=== PATIENT | male | born 1935 | race Two or more races ===

== ENCOUNTER 2018-05-23 16:58 | Inpatient (IN) | payer MEDICARE, OTHER ==
[~2018-05-23] VITALS: Ht 188 cm; Wt 68.0 kg
--- NOTE | 2018-05-23 17:45 | NUR ---
Dr. Moore at bedside for MSE.
[2018-05-23] MEDS ORDERED: BLOO-140 IN (17:48)
[2018-05-23] MEDS ORDERED: EMPA25TA PO (17:48)
[2018-05-23] MEDS ORDERED: FERR325T6 PO (17:48)
[2018-05-23] MEDS ORDERED: ASCO500T10 PO (17:48)
[2018-05-23] MEDS ORDERED: ATOR40TA PO (17:48)
[2018-05-23] MEDS ORDERED: ESCI10TA PO (17:48)
[2018-05-23] MEDS ORDERED: DOCU100C36 PO (17:48)
[2018-05-23] MEDS ORDERED: TAMS-3 PO (17:48)
[2018-05-23] MEDS ORDERED: ACET325T53 PO (17:48)
[2018-05-23] MEDS ORDERED: CEFE1PIG3 IV (17:48)
[2018-05-23] MEDS ORDERED: AMIO100T4 PO (17:48)
[2018-05-23] MEDS ORDERED: CLOP75TA15 PO (17:49)
[2018-05-23] MEDS ORDERED: RIVA15TA2 PO (17:49)
[2018-05-23] MEDS ORDERED: AMIN30LI24 PO (17:49)
[2018-05-23] MEDS ORDERED: OLAN5TAB3 PO (17:49)
[2018-05-23] MEDS ORDERED: MULT1TAB73 PO (17:49)
[2018-05-23] MEDS ORDERED: METO50TA7 PO (17:49)
[2018-05-23] MEDS ORDERED: FINA5TAB3 PO (17:49)
[2018-05-23] MEDS ORDERED: MORPHINE SULFATE 2 MG/1 ML DISP.SYRIN IV ONE (18:00)
[2018-05-23] MEDS ORDERED: ONDANSETRON 4 MG/2 ML VIAL IV ONE (18:00)
[2018-05-23] MEDS ORDERED: MORPHINE SULFATE 4 MG/1 ML DISP.SYRIN ONE (18:04)
[2018-05-23] MEDS ORDERED: ONDANSETRON 4 MG/2 ML VIAL ONE (18:04)
--- NOTE | 2018-05-23 18:10 | NUR ---
Xray at bedside.
[2018-05-23 18:13] LABS: BASOPHILS % (AUTO) 0.5 % (0.0-2.0); EOSINOPHILS # (AUTO) 0.1 K/uL (0.0-0.7); EOSINOPHILS % (AUTO) 1.3 % (0.0-7.0); HEMATOCRIT 22.6 % (36.7-47.1); HEMOGLOBIN 7.5 g/dL (12.5-16.3); LYMPHOCYTES # (AUTO) 2.3 K/uL (20.0-40.0); LYMPHOCYTES % (AUTO) 39.9 % (20.5-51.5); MEAN CORPUSCULAR HGB CONC 33 g/dL (32.5-36.3); MEAN CORPUSCULAR VOLUME 75.1 fL (73.0-96.2); MONOCYTES # (AUTO) 0.4 K/uL (2.0-10.0); MONOCYTES % (AUTO) 6.8 % (0.0-11.0); NEUTROPHILS # (AUTO) 2.9 K/uL (1.8-8.9); NEUTROPHILS % (AUTO) 51.5 % (38.5-71.5); PLATELET COUNT (AUTO) 261 K/uL (152-348); RED BLOOD CELL COUNT(AUTO) 3.01 MIL/uL (4.06-5.63); WHITE BLOOD COUNT (AUTO) 5.7 K/uL (3.6-10.2)
[2018-05-23 18:24] LABS: CARBON DIOXIDE 32 mmol/L (21-32); CHLORIDE 101 mmol/L (98-107); CREATININE 1.2 mg/dL (0.6-1.3); GLUCOSE 102 mg/dL (74-106); POTASSIUM 3.5 mmol/L (3.5-5.1); UREA NITROGEN, BLOOD 14 mg/dL (7-18)
[2018-05-23 18:30] LABS: ALANINE AMINOTRANSFERASE 11 U/L (16-63); ALKALINE PHOSPHATASE 100 U/L (50-136); ASPARTATE AMINOTRANSFERASE 20 U/L (15-37); BILIRUBIN,DIRECT 0.1 mg/dL (0.0-0.2); BILIRUBIN,TOTAL 0.3 mg/dL (0.2-1.0); LIPASE 131 U/L (73-393); TOTAL PROTEIN, SERUM 6.8 g/dL (6.4-8.2)
[2018-05-23 19:25] VITALS: BP 94/50
[2018-05-23] MEDS ORDERED: AMINO ACIDS PO SCH (19:45)
[2018-05-23] MEDS ORDERED: Medication Not On Formulary EA (Empagliflozin (Jardiance) 25 MG) PO SCH (19:45)
[2018-05-23] MEDS ORDERED: [UNRECOGNIZED DRUG - OTHER] PO SCH (19:45)
[2018-05-23] MEDS ORDERED: Medication Not On Formulary EA (Multivitamins (Multivitamin) 1 EACH) PO SCH (19:45)
[2018-05-23] MEDS ORDERED: PROTEIN HYDROLYS PO SCH (19:45)
[2018-05-23] MEDS ORDERED: Medication Not On Formulary EA (Ferrous Sulfate 325 MG) PO SCH (19:45)
[2018-05-23] MEDS ORDERED: ACETAMINOPHEN 325 MG TABLET PO PRN ×2 (19:45→21:15)
--- NOTE | 2018-05-23 19:54 | NUR ---
Report given to Sheeba VALLE Tele.
--- NOTE | 2018-05-23 20:15 | NUR ---
Received patient to Tele floor. A&Ox3. Belongings list completed, oriented patient to unit and use of call light. Bed alarm on, call light within reach.
[2018-05-23] MEDS: TAMSULOSIN HCL 0.4 MG CAP.SR.24H PO SCH (21:00)
[2018-05-23] MEDS: METOPROLOL SUCCINATE XL 50 MG TAB.SR.24H PO SCH (21:00)
[2018-05-23] MEDS ORDERED: ONDANSETRON 4 MG/2 ML VIAL IV PRN (21:15)
[2018-05-23] MEDS ORDERED: Z GUARD REMEDY PASTE 57 GM TUBE TOP PRN (21:15)
[2018-05-23] MEDS ORDERED: MAGNESIUM HYDROXIDE 30 ML LIQUID UDC PO PRN (21:15)
[2018-05-23] MEDS: ATORVASTATIN 40 MG TABLET PO SCH (21:49)
[2018-05-23] MEDS: OLANZAPINE 5 MG TABLET PO SCH (21:49)
[2018-05-23] MEDS: IV NS 1000 ML 1,000 ML IV PRN (21:50)
[2018-05-23] MEDS: diphenhydrAMINE 25 MG CAP PO PRN (22:41)
[2018-05-23 23:43] VITALS: BP 98/55
[2018-05-24 03:37] VITALS: BP 96/39
[2018-05-24] MEDS: diphenhydrAMINE 25 MG CAP PO PRN (05:13)
[2018-05-24 06:48] LABS: BASOPHILS % (AUTO) 0.3 % (0.0-2.0); EOSINOPHILS # (AUTO) 0.2 K/uL (0.0-0.7); EOSINOPHILS % (AUTO) 3.5 % (0.0-7.0); HEMATOCRIT 22.2 % (36.7-47.1); LYMPHOCYTES # (AUTO) 1.7 K/uL (20.0-40.0); LYMPHOCYTES % (AUTO) 38.4 % (20.5-51.5); MEAN CORPUSCULAR HEMOGLOBIN 25.1 uug (23.8-33.4); MEAN CORPUSCULAR HGB CONC 33 g/dL (32.5-36.3); MEAN CORPUSCULAR VOLUME 75.9 fL (73.0-96.2); MONOCYTES # (AUTO) 0.3 K/uL (2.0-10.0); MONOCYTES % (AUTO) 7.2 % (0.0-11.0); NEUTROPHILS # (AUTO) 2.3 K/uL (1.8-8.9); NEUTROPHILS % (AUTO) 50.6 % (38.5-71.5); PLATELET COUNT (AUTO) 239 K/uL (152-348); RED BLOOD CELL COUNT(AUTO) 2.93 MIL/uL (4.06-5.63); WHITE BLOOD COUNT (AUTO) 4.5 K/uL (3.6-10.2)
[2018-05-24 07:05] LABS: ALANINE AMINOTRANSFERASE 8 U/L (16-63); ALKALINE PHOSPHATASE 90 U/L (50-136); ASPARTATE AMINOTRANSFERASE 17 U/L (15-37); BILIRUBIN,TOTAL 0.3 mg/dL (0.2-1.0); CARBON DIOXIDE 31 mmol/L (21-32); CHLORIDE 106 mmol/L (98-107); CREATININE 1.1 mg/dL (0.6-1.3); GLUCOSE 86 mg/dL (74-106); MAGNESIUM 2.1 mg/dL (1.8-2.4); PHOSPHOROUS 2.8 mg/dL (2.5-4.9); POTASSIUM 3.2 mmol/L (3.5-5.1); TOTAL PROTEIN, SERUM 6.4 g/dL (6.4-8.2); UREA NITROGEN, BLOOD 14 mg/dL (7-18)
[2018-05-24 07:08] LABS: HEMOGLOBIN 7.3 g/dL (12.5-16.3)
[2018-05-24] MEDS: PROTEIN SUPPLEMENT (PROSTAT) 30 ML LIQUID PO SCH ×2 (08:00→16:54)
[2018-05-24] MEDS ORDERED: INSULIN REGULAR, HUMAN 300 UNITS/3 ML VIAL SQ PRN (08:30)
[2018-05-24] MEDS ORDERED: CEFEPIME HCL 2 G in IV DEXTROSE 5% 100 ML IV SCH (08:30)
[2018-05-24] MEDS ORDERED: DEXTROSE 50% 50 ML DISP.SYRIN IV PRN (08:30)
[2018-05-24] MEDS ORDERED: FERROUS SULFATE 325 MG TABEC PO SCH (09:00)
[2018-05-24] MEDS: BLOOD SUGAR DIAGNOSTIC 1 EACH STRIP VI SCH ×4 (09:00→20:37)
[2018-05-24] MEDS ORDERED: FINASTERIDE 5 MG TABLET PO SCH (09:00)
[2018-05-24] MEDS: METOPROLOL SUCCINATE XL 50 MG TAB.SR.24H PO SCH (09:00)
[2018-05-24] MEDS: DOCUSATE SODIUM 100 MG CAPSULE PO SCH (09:02)
[2018-05-24] MEDS: FINASTERIDE 5 MG TABLET PO SCH (09:02)
[2018-05-24] MEDS: ESCITALOPRAM OXALATE 10 MG TABLET PO SCH (09:02)
[2018-05-24] MEDS: TAMSULOSIN HCL 0.4 MG CAP.SR.24H PO SCH (09:02)
[2018-05-24] MEDS: ASCORBIC ACID 500 MG TABLET PO SCH (09:02)
[2018-05-24] MEDS: MIRALAX 17 GM POWD.PACK PO SCH (09:02)
[2018-05-24] MEDS: MULTIVITAMINS,THERAPEUTIC TABLET PO SCH (09:03)
[2018-05-24] MEDS: AMIODARONE HCL 200 MG TABLET PO SCH (09:07)
[2018-05-24] MEDS: CEFEPIME HCL 2 G in IV DEXTROSE 5% 100 ML IV SCH ×2 (09:14→20:25)
--- NOTE | 2018-05-24 09:49 | NUR ---
Pt BP 98/44, heart rate 72, metoprolol held.
[2018-05-24 11:18] VITALS: BP 93/47
[2018-05-24] MEDS: IV NS 1000 ML 1,000 ML IV PRN (11:44)
[2018-05-24] MEDS ORDERED: POTASSIUM CHLORIDE 20 MEQ POWDER PACKET PO ONE (12:15)
[2018-05-24] MEDS: SOD FERRIC GLUC COMPLX/SUCROSE 125 MG in IV NORMAL SALINE 100 ML IV SCH (13:51)
--- NOTE | 2018-05-24 14:06 | NUR ---
WOUND CARE CONSULT: PT SEEN BY SURGICAL TEAM. DEFER TO SURGICAL TEAM FOR WOUND TREATMENT PLAN. ALL SKIN PROTECTION AND PRESSURE ULCER PREVENTION MEASURES IN PLACE AND DISCUSSED WITH NURSING STAFF. FIRST STEP LOW AIRLOSS MATTRESS ORDERED.
[2018-05-24 15:20] VITALS: BP 83/23
--- NOTE | 2018-05-24 15:30 | NUR ---
BP 83/23, DOCTOR PAGED WAITING FOR CALL BACK. PT SHOWS NO SIGNS OF ACUTE DISTRESS. CONTINUE TO MONITOR.
--- NOTE | 2018-05-24 15:40 | NUR ---
MD NOTIFIED OF BP, IV NS BOLUS ORDERED, CONTINUE TO MONITOR PT.
[2018-05-24] MEDS ORDERED: IV NS 1000 ML 1,000 ML IV ONE (15:45)
--- NOTE | 2018-05-24 16:20 | NUR ---
BP 103/50. MD NOTIFIED. PT OBSERVED EATING DINNER. NO SIGNS OF ACUTE DISTRESS. CONTINUE TO MONITOR PT.
[2018-05-24] MEDS: INSULIN REGULAR, HUMAN 300 UNIT/3 ML VIAL SQ PRN ×2 (16:51→21:28)
--- NOTE | 2018-05-24 18:30 | NUR ---
CALLED DAUGHTER MAYE PEREZ. RECEIVED CONSENT OVER THE PHONE FOR SACRAL AND LEFT HEEL WOUND DEBRIDEMENT. CALLED KWAN BRIDGETTE TO RECEIVE ORDERS FOR DAKINS SOLUTION, MESSAGE LEFT ON PHONE. WOUND CARE PROVIDED. PT REFUSED 11:30 INSULIN FOR A BLOOD SUGAR 215. IV NS BOLUS GIVEN TODAY. NOT IN ACUTE DISTRESS AT THIS TIME. CONTINUE TO MONITOR PT.
--- NOTE | 2018-05-24 19:10 | NUR ---
RECEIVED PT ASLEEP ON BED, NO SIGNS OF RESPIRATORY DISTRESS NOTED. PICC LINE ON BARRY, PATENT AND INTACT. ON FC, DRAINING WELL VIA GRAVITY. SAFETY MEASURES INITIATED, CALL NAM WITHIN REACH.
[2018-05-24 19:25] VITALS: BP 98/46
[2018-05-24] MEDS: ATORVASTATIN 40 MG TABLET PO SCH (20:25)
[2018-05-24] MEDS: OLANZAPINE 5 MG TABLET PO SCH (20:25)
[2018-05-24] MEDS: SODIUM HYPOCHLORITE 0.25% 480 ML BOTTLE TOP SCH (21:31)
[2018-05-24] MEDS: TEMAZEPAM 7.5 MG CAPSULE PO PRN (23:38)
[2018-05-25] MEDS: HYDROCODONE/APAP 5-325MG TABLET PO PRN (00:22)
[2018-05-25 03:33] VITALS: BP 91/46
[2018-05-25] MEDS: IV NS 1000 ML 1,000 ML IV PRN ×2 (03:49→21:04)
--- NOTE | 2018-05-25 06:37 | NUR ---
PT RESTING COMFORTABLY ON BED, AAOX2, NO SIGNS OF ACUTE DISTRESS AT THIS TIME. PICC LINE ON BARRY, PATENT AND INTACT. SKIN CARE PROVIDED. FC, DRAINING WELL VIA GRAVITY WITH CLEAR YELLOW OUTPUT. ALL NEEDS ATTENDED AND MET. SAFE ENVIRONMENT MAINTAINED AT ALL TIMES, CALL NAM WITHIN REACH.
[2018-05-25] MEDS: BLOOD SUGAR DIAGNOSTIC 1 EACH STRIP VI SCH ×4 (06:58→21:07)
[2018-05-25] MEDS ORDERED: SODIUM HYPOCHLORITE 0.25% 480 ML BOTTLE TOP SCH (09:00)
[2018-05-25] MEDS: PROTEIN SUPPLEMENT (PROSTAT) 30 ML LIQUID PO SCH ×2 (09:00→16:47)
[2018-05-25] MEDS: METOPROLOL SUCCINATE XL 50 MG TAB.SR.24H PO SCH (09:00)
[2018-05-25] MEDS: DOCUSATE SODIUM 100 MG CAPSULE PO SCH (09:16)
[2018-05-25] MEDS: ESCITALOPRAM OXALATE 10 MG TABLET PO SCH (09:16)
[2018-05-25] MEDS: MIRALAX 17 GM POWD.PACK PO SCH (09:16)
[2018-05-25] MEDS: ASCORBIC ACID 500 MG TABLET PO SCH (09:16)
[2018-05-25] MEDS: TAMSULOSIN HCL 0.4 MG CAP.SR.24H PO SCH (09:16)
[2018-05-25] MEDS: MULTIVITAMINS,THERAPEUTIC TABLET PO SCH (09:16)
[2018-05-25] MEDS: FINASTERIDE 5 MG TABLET PO SCH (09:16)
[2018-05-25] MEDS: SODIUM HYPOCHLORITE 0.25% 480 ML BOTTLE TOP SCH ×2 (09:20→21:04)
[2018-05-25] MEDS: CEFEPIME HCL 2 G in IV DEXTROSE 5% 100 ML IV SCH ×2 (09:21→21:03)
[2018-05-25] MEDS ORDERED: POTASSIUM CHLORIDE 20 MEQ TAB.PRT.SR PO ONE (11:00)
[2018-05-25 11:22] VITALS: BP 98/42
[2018-05-25] MEDS: MUPIROCIN 2% OINT 22 GM TUBE NS SCH ×2 (12:08→21:07)
[2018-05-25] MEDS: SOD FERRIC GLUC COMPLX/SUCROSE 125 MG in IV NORMAL SALINE 100 ML IV SCH (13:33)
[2018-05-25] MEDS ORDERED: BISACODYL 10 MG SUPP.RECT RC ONE (15:00)
[2018-05-25 15:10] VITALS: BP 129/57
--- NOTE | 2018-05-25 16:00 | NUR ---
WOUND TREATMENT DONE ORDERED. PATIENT TOLERATED PROCEDURE WELL. NO S/S OF INFECTION. VS STABLE, AFEBRILE.
[2018-05-25 17:26] LABS: CARBON DIOXIDE 31 mmol/L (21-32); CHLORIDE 107 mmol/L (98-107); CREATININE 1.3 mg/dL (0.6-1.3); GLUCOSE 114 mg/dL (74-106); UREA NITROGEN, BLOOD 15 mg/dL (7-18)
[2018-05-25 19:23] VITALS: BP 99/42
--- NOTE | 2018-05-25 19:30 | NUR ---
RECEIVED SHIFT REPORT FROM TORI CARMONA. PT RESTING IN BED AT THIS TIME. DENIES PAIN, C/P, SOB, N/V. PT HAS A GRANGER CATH IN PLACE, INTACT AND PATENT. GRANGER CATH DRAINING WELL, URINE YELLOW AND CLEAR IN APPEARANCE. PT HAS BILATERAL NEPHROSTOMY IN PLACE, NO DRAINAGE. BED IN LOW AND LOCKED POSITION WITH BILATERAL UPPER SIDERAILS UP. CALL LIGHT WITHIN REACH. WILL CONTINUE TO MONITOR.
[2018-05-25] MEDS: OLANZAPINE 5 MG TABLET PO SCH (21:04)
[2018-05-25] MEDS: ATORVASTATIN 40 MG TABLET PO SCH (21:04)
[2018-05-25 22:11] LABS: *OCCULT BLOOD STOOL NEGATIVE (NEGATIVE)
[2018-05-25] MEDS: diphenhydrAMINE 25 MG CAP PO PRN (23:08)
[2018-05-26] MEDS: HYDROCODONE/APAP 5-325MG TABLET PO PRN ×2 (01:35→20:10)
[2018-05-26] MEDS: TEMAZEPAM 7.5 MG CAPSULE PO PRN (01:38)
[2018-05-26 03:34] VITALS: BP 105/49
[2018-05-26] MEDS: BLOOD SUGAR DIAGNOSTIC 1 EACH STRIP VI SCH ×4 (06:34→21:10)
--- NOTE | 2018-05-26 07:20 | NUR ---
Received patient in bed,awake, alert and oriented x3, in no acute distress. denies chest pain or SOB. BARRY PICC line intact, IV fluids infusing at 75cc/hr, tolerating well. F/C patent and draining yellow urine. No hematuria or sediments noted. Will continue to monitor
[2018-05-26] MEDS: PROTEIN SUPPLEMENT (PROSTAT) 30 ML LIQUID PO SCH ×2 (08:00→16:50)
[2018-05-26] MEDS: CEFEPIME HCL 2 G in IV DEXTROSE 5% 100 ML IV SCH ×2 (08:47→20:10)
[2018-05-26] MEDS: AMIODARONE HCL 200 MG TABLET PO SCH (08:48)
[2018-05-26] MEDS: DOCUSATE SODIUM 100 MG CAPSULE PO SCH (08:48)
[2018-05-26] MEDS: METOPROLOL SUCCINATE XL 50 MG TAB.SR.24H PO SCH (08:48)
[2018-05-26] MEDS: MULTIVITAMINS,THERAPEUTIC TABLET PO SCH (08:48)
[2018-05-26] MEDS: ESCITALOPRAM OXALATE 10 MG TABLET PO SCH (08:48)
[2018-05-26] MEDS: TAMSULOSIN HCL 0.4 MG CAP.SR.24H PO SCH (08:48)
[2018-05-26] MEDS: FINASTERIDE 5 MG TABLET PO SCH (08:48)
[2018-05-26] MEDS: ASCORBIC ACID 500 MG TABLET PO SCH (08:49)
[2018-05-26] MEDS: MUPIROCIN 2% OINT 22 GM TUBE NS SCH ×2 (08:49→21:10)
[2018-05-26] MEDS: SODIUM HYPOCHLORITE 0.25% 480 ML BOTTLE TOP SCH ×2 (08:49→21:10)
[2018-05-26] MEDS: MIRALAX 17 GM POWD.PACK PO SCH (08:49)
[2018-05-26 11:02] LABS: BASOPHILS % (AUTO) 0.2 % (0.0-2.0); EOSINOPHILS # (AUTO) 0.2 K/uL (0.0-0.7); LYMPHOCYTES # (AUTO) 1.7 K/uL (20.0-40.0); LYMPHOCYTES % (AUTO) 36.1 % (20.5-51.5); MEAN CORPUSCULAR HEMOGLOBIN 25.2 uug (23.8-33.4); MEAN CORPUSCULAR HGB CONC 33 g/dL (32.5-36.3); MEAN CORPUSCULAR VOLUME 76.5 fL (73.0-96.2); MONOCYTES # (AUTO) 0.4 K/uL (2.0-10.0); MONOCYTES % (AUTO) 8.6 % (0.0-11.0); NEUTROPHILS # (AUTO) 2.4 K/uL (1.8-8.9); NEUTROPHILS % (AUTO) 51.1 % (38.5-71.5); PLATELET COUNT (AUTO) 220 K/uL (152-348); RED BLOOD CELL COUNT(AUTO) 2.88 MIL/uL (4.06-5.63); WHITE BLOOD COUNT (AUTO) 4.7 K/uL (3.6-10.2)
[2018-05-26 11:09] VITALS: BP 108/64
[2018-05-26 11:13] LABS: HEMOGLOBIN 7.2 g/dL (12.5-16.3)
--- NOTE | 2018-05-26 11:25 | NUR ---
Received critical low Hemoglobin result of 7.2, call placed to Dr. Perkins, no new orders received.Continue with IV Iron as ordered. Patient in no acute distress. No s/s of bleeding noted. Will continue to monitor
[2018-05-26] MEDS: IV NS 1000 ML 1,000 ML IV PRN (13:22)
[2018-05-26] MEDS: SOD FERRIC GLUC COMPLX/SUCROSE 125 MG in IV NORMAL SALINE 100 ML IV SCH (13:22)
[2018-05-26 15:06] VITALS: BP 102/40
--- NOTE | 2018-05-26 17:08 | NUR ---
End of shift note: Patient is alert and oriented x3, in no acute distress. Denies chest pain or SOB at this time. BARRY PICC line intact, positive blood return. F/C patent and draining yellow urine. No hematuria or sediments noted. Bilateral nephrostomy in place, clamped. Turned and repositioned every 2 hours. Wound care treatment done as ordered. No s/s of bleeding noted. All needs attended and met. Will continue to monitor
[2018-05-26] MEDS: OLANZAPINE 5 MG TABLET PO SCH (20:09)
[2018-05-26] MEDS: ATORVASTATIN 40 MG TABLET PO SCH (20:09)
[2018-05-26 20:15] VITALS: BP 101/50
[2018-05-27] MEDS: IV NS 1000 ML 1,000 ML IV PRN ×2 (04:09→23:00)
[2018-05-27 04:40] VITALS: BP 84/36
[2018-05-27 05:10] VITALS: BP 108/55
--- NOTE | 2018-05-27 05:15 | NUR ---
nsg: dressing changed on coccyx and left heel completed.
--- NOTE | 2018-05-27 06:24 | NUR ---
end of shift note: no acute distress noted. denies discomfort. changed sacral and left heel dressing as ordered. turned and repositioned. all needs attended. cont with treatment plan.
[2018-05-27] MEDS: BLOOD SUGAR DIAGNOSTIC 1 EACH STRIP VI SCH ×4 (06:48→21:29)
--- NOTE | 2018-05-27 07:45 | NUR ---
RECEIVED PATIENT ON FIRST STEP CONTRERAS AWAKE ALERT TO SELF WITH CONFUSSION AND DISORIENTATION AT THIS TIME PATIENT IS SOMEWHAT AGITATED AND RESTLESS ALL NEEDS ANTICIPATED AND SATISFIED TURNED AND REPOSITIONED Q2H MADE COMFORTABLE AND WILL CONTINUE TO OBSERVE.
[2018-05-27] MEDS: ASCORBIC ACID 500 MG TABLET PO SCH (08:48)
[2018-05-27] MEDS: MULTIVITAMINS,THERAPEUTIC TABLET PO SCH (08:48)
[2018-05-27] MEDS: ESCITALOPRAM OXALATE 10 MG TABLET PO SCH (08:48)
[2018-05-27] MEDS: TAMSULOSIN HCL 0.4 MG CAP.SR.24H PO SCH (08:48)
[2018-05-27] MEDS: FINASTERIDE 5 MG TABLET PO SCH (08:48)
[2018-05-27] MEDS: DOCUSATE SODIUM 100 MG CAPSULE PO SCH (08:48)
[2018-05-27] MEDS: METOPROLOL SUCCINATE XL 50 MG TAB.SR.24H PO SCH (08:49)
[2018-05-27] MEDS: CEFEPIME HCL 2 G in IV DEXTROSE 5% 100 ML IV SCH ×2 (08:51→20:04)
[2018-05-27] MEDS: MUPIROCIN 2% OINT 22 GM TUBE NS SCH ×2 (08:51→21:30)
[2018-05-27] MEDS: PROTEIN SUPPLEMENT (PROSTAT) 30 ML LIQUID PO SCH ×2 (08:52→16:09)
[2018-05-27] MEDS: MIRALAX 17 GM POWD.PACK PO SCH (08:52)
[2018-05-27] MEDS: SODIUM HYPOCHLORITE 0.25% 480 ML BOTTLE TOP SCH ×2 (09:01→21:30)
--- NOTE | 2018-05-27 09:40 | NUR ---
PATIENT IS AGITATED AND RESTLESS CALLING OUT FOR HELP SCREAMING COMPLAINED ABOUT HIS BED WANT IT DEFLATED AND THE HALF AN HOUR LATER WANTS IT INFLATED PATIENT TURNED AND REPOSITIONED AND HE KEPT ON COMPLAINING OF BEING UNCOMFORTABLE MEDICATED WITH NORCO ORDERED AND WILL CONTINUE TO OBSERVE.
[2018-05-27] MEDS: HYDROCODONE/APAP 5-325MG TABLET PO PRN (09:47)
[2018-05-27] MEDS: diphenhydrAMINE 25 MG CAP PO PRN (11:04)
--- NOTE | 2018-05-27 11:04 | NUR ---
PATIENT QUIETENED FOR A WHILE AND THEN STARTED AGAIN COMPLAINING OF HIS BACK ALL OVER LOTION APPLIED AND BENADRYL GIVEN ORDERED NO REDNEAA AT THIS TIME AND WILL CONTINUE TO OBSERVE.
[2018-05-27 12:00] VITALS: BP 101/51
[2018-05-27] MEDS: INSULIN REGULAR, HUMAN 300 UNIT/3 ML VIAL SQ PRN (12:24)
[2018-05-27] MEDS: SOD FERRIC GLUC COMPLX/SUCROSE 125 MG in IV NORMAL SALINE 100 ML IV SCH (13:39)
--- NOTE | 2018-05-27 15:30 | NUR ---
PATIENT IS OFTEN ANNOYED AND IRRITATED MADE COMFORTABLE ALL NEEDS ANTICIPATED AND SATISFIED WILL CONTINUE TO OBSERVE.
[2018-05-27 15:48] VITALS: BP 100/39
--- NOTE | 2018-05-27 17:00 | NUR ---
DIASTOLIC BLOOD PRESSURE HAS BEED CONSISTENTLY LOW RANGING FROM 23 ON THE April TO [address] LOZADA TO NOTIFY HIM MESSAGE LEFT WITH OSBALDO ROPER MD.
[2018-05-27] MEDS ORDERED: IV NORMAL SALINE 500 ML IV ONE (17:30)
--- NOTE | 2018-05-27 17:32 | NUR ---
DR LOZADA RETURNED CALL WITH NEW ORDERS HE IS ALSO AWARE THAT PATIENT IS CONSISTENTLY AGITATED AND CALLING OUT WITH ORDERS AND NOTED.
--- NOTE | 2018-05-27 18:05 | NUR ---
NS BOLUS REMAINS IN PROGRESS AT THIS TIME WILL CONTINUE TO OBSERVE.
--- NOTE | 2018-05-27 19:00 | NUR ---
RECEIVED IN BED ALERT ORIENTED, NO SOB NO CHEST PAIN, GRANGER CATH PATENT DRAINING WITH YELLOW COLOR URINE IN MODERATE AMOUNT, TURN AND REPOSITION, ON AIR MATTRESS FOR WOUND MANAGEMENT, REMAIN IN CONTACT ISOLATION, MRSA NARES, CONT TO MONITOR.
[2018-05-27 19:35] VITALS: BP 116/50
[2018-05-27] MEDS: OLANZAPINE 5 MG TABLET PO SCH (20:01)
[2018-05-27] MEDS: ATORVASTATIN 40 MG TABLET PO SCH (20:01)
[2018-05-27] MEDS: QUETIAPINE FUMARATE 25 MG TABLET PO SCH (20:01)
[2018-05-28 04:29] VITALS: BP 93/40
--- NOTE | 2018-05-28 04:56 | NUR ---
PATIENT SLEPT MOST OF THE NIGHT, NO SOB NO CHEST PAIN, NO COMPLAIN OF PAIN AT THIS TIME. TX DONE ONSACRAL WOUND, NO ODOR NO EXUDATE NOTED, TURN AND REPOSITION EVERY TWO HOURS, GRANGER CATH PATENT DRAINING WITH YELLOW COLOR URINE. R UPPER ARM PICC LINE PATENT, CONT ON CONTACT ISOLATION. CALL LIGHT WITHIN REACH.
[2018-05-28 05:38] LABS: BASOPHILS % (AUTO) 0.1 % (0.0-2.0); EOSINOPHILS # (AUTO) 0.1 K/uL (0.0-0.7); EOSINOPHILS % (AUTO) 1.8 % (0.0-7.0); HEMOGLOBIN 7.5 g/dL (12.5-16.3); LYMPHOCYTES # (AUTO) 1.9 K/uL (20.0-40.0); LYMPHOCYTES % (AUTO) 29.7 % (20.5-51.5); MEAN CORPUSCULAR HEMOGLOBIN 24.6 uug (23.8-33.4); MEAN CORPUSCULAR HGB CONC 33 g/dL (32.5-36.3); MEAN CORPUSCULAR VOLUME 75.5 fL (73.0-96.2); MONOCYTES # (AUTO) 0.5 K/uL (2.0-10.0); MONOCYTES % (AUTO) 7.3 % (0.0-11.0); NEUTROPHILS # (AUTO) 3.8 K/uL (1.8-8.9); NEUTROPHILS % (AUTO) 61.1 % (38.5-71.5); PLATELET COUNT (AUTO) 232 K/uL (152-348); RED BLOOD CELL COUNT(AUTO) 3.04 MIL/uL (4.06-5.63); WHITE BLOOD COUNT (AUTO) 6.3 K/uL (3.6-10.2)
[2018-05-28 05:46] LABS: CARBON DIOXIDE 27 mmol/L (21-32); CHLORIDE 110 mmol/L (98-107); CREATININE 1.1 mg/dL (0.6-1.3); GLUCOSE 81 mg/dL (74-106); POTASSIUM 3.2 mmol/L (3.5-5.1); UREA NITROGEN, BLOOD 16 mg/dL (7-18)
[2018-05-28] MEDS: BLOOD SUGAR DIAGNOSTIC 1 EACH STRIP VI SCH ×4 (05:57→21:32)
[2018-05-28 05:59] VITALS: BP 121/53
[2018-05-28] MEDS: MULTIVITAMINS,THERAPEUTIC TABLET PO SCH (08:26)
[2018-05-28] MEDS: DOCUSATE SODIUM 100 MG CAPSULE PO SCH (08:26)
[2018-05-28] MEDS: ASCORBIC ACID 500 MG TABLET PO SCH (08:26)
[2018-05-28] MEDS: MIRALAX 17 GM POWD.PACK PO SCH (08:26)
[2018-05-28] MEDS: ESCITALOPRAM OXALATE 10 MG TABLET PO SCH (08:26)
[2018-05-28] MEDS: FINASTERIDE 5 MG TABLET PO SCH (08:26)
[2018-05-28] MEDS: TAMSULOSIN HCL 0.4 MG CAP.SR.24H PO SCH (08:26)
[2018-05-28] MEDS: METOPROLOL SUCCINATE XL 50 MG TAB.SR.24H PO SCH (08:27)
[2018-05-28] MEDS: MUPIROCIN 2% OINT 22 GM TUBE NS SCH ×2 (08:28→21:31)
[2018-05-28] MEDS: PROTEIN SUPPLEMENT (PROSTAT) 30 ML LIQUID PO SCH ×2 (08:28→16:13)
[2018-05-28] MEDS: SODIUM HYPOCHLORITE 0.25% 480 ML BOTTLE TOP SCH ×2 (08:29→21:31)
[2018-05-28] MEDS: POTASSIUM CHLORIDE 50 ML IV SCH ×4 (10:20→13:55)
[2018-05-28] MEDS: diphenhydrAMINE 25 MG CAP PO PRN (11:12)
[2018-05-28 11:20] VITALS: BP 126/58
[2018-05-28] MEDS: HYDROCODONE/APAP 5-325MG TABLET PO PRN ×2 (11:54→17:56)
[2018-05-28] MEDS: INSULIN REGULAR, HUMAN 300 UNIT/3 ML VIAL SQ PRN ×2 (11:58→16:15)
[2018-05-28] MEDS: SOD FERRIC GLUC COMPLX/SUCROSE 125 MG in IV NORMAL SALINE 100 ML IV SCH (14:02)
[2018-05-28 15:30] VITALS: BP 94/34
[2018-05-28] MEDS: IV NS 1000 ML 1,000 ML IV PRN (18:09)
[2018-05-28 19:56] VITALS: BP 96/49
--- NOTE | 2018-05-28 21:00 | NUR ---
Nursing Note: Pt resting in bed appeared to be agitated during previous interaction. Pt reoriented and medications where dispensed. Pt spoke to on phone briefly. Pt being turned and repositioned every 2 hours. Patient R picc intact. No active bleeding. Pt heel kept elevated. Bed in low locked position all times. Frequent visual checks. Call light in reach. Personal protective equipment worn at all times. Will continue to monitor.
[2018-05-28] MEDS: ATORVASTATIN 40 MG TABLET PO SCH (21:28)
[2018-05-28] MEDS: OLANZAPINE 5 MG TABLET PO SCH (21:28)
[2018-05-28] MEDS: QUETIAPINE FUMARATE 25 MG TABLET PO SCH (21:29)
--- NOTE | 2018-05-29 01:00 | NUR ---
Nursing Note: Prepared to do wound care. Pt refused wound care. Turned and reposition every two hours. Personal protective equipment used at all times. Bed in low and locked position. Frequent visual checks. Call light in reach. Continue to monitor.
[2018-05-29 05:24] VITALS: BP 123/48
--- NOTE | 2018-05-29 06:59 | NUR ---
Nursing Note: Pt resting in bed. Respirations even and unlabored. BGL checks and noted to be 87mg/dl. No signs or symptoms hypoglycemia noted. Bed in a low and locked position. Call light in reach. continue to monitor.
[2018-05-29] MEDS: DOCUSATE SODIUM 100 MG CAPSULE PO SCH (08:02)
[2018-05-29] MEDS: ESCITALOPRAM OXALATE 10 MG TABLET PO SCH (08:02)
[2018-05-29] MEDS: ASCORBIC ACID 500 MG TABLET PO SCH (08:02)
[2018-05-29] MEDS: FINASTERIDE 5 MG TABLET PO SCH (08:03)
[2018-05-29] MEDS: MIRALAX 17 GM POWD.PACK PO SCH (08:03)
[2018-05-29] MEDS: MULTIVITAMINS,THERAPEUTIC TABLET PO SCH (08:03)
[2018-05-29] MEDS: TAMSULOSIN HCL 0.4 MG CAP.SR.24H PO SCH (08:03)
[2018-05-29 08:04] VITALS: BP 125/50
[2018-05-29] MEDS: METOPROLOL SUCCINATE XL 50 MG TAB.SR.24H PO SCH (08:04)
[2018-05-29] MEDS: AMIODARONE HCL 200 MG TABLET PO SCH (08:04)
[2018-05-29] MEDS: SODIUM HYPOCHLORITE 0.25% 480 ML BOTTLE TOP SCH (08:05)
[2018-05-29] MEDS: MUPIROCIN 2% OINT 22 GM TUBE NS SCH (08:05)
[2018-05-29] MEDS: PROTEIN SUPPLEMENT (PROSTAT) 30 ML LIQUID PO SCH (08:06)
[2018-05-29] MEDS: BLOOD SUGAR DIAGNOSTIC 1 EACH STRIP VI SCH (08:07)
[2018-05-29 09:14] LABS: MONOCYTES # (AUTO) 0.4 K/uL (2.0-10.0); WHITE BLOOD COUNT (AUTO) 5.6 K/uL (3.6-10.2)
[2018-05-29 09:53] LABS: BASOPHILS % (AUTO) 0.3 % (0.0-2.0); EOSINOPHILS # (AUTO) 0.3 K/uL (0.0-0.7); EOSINOPHILS % (AUTO) 4.6 % (0.0-7.0); LYMPHOCYTES # (AUTO) 2.2 K/uL (20.0-40.0); LYMPHOCYTES % (AUTO) 39.3 % (20.5-51.5); MEAN CORPUSCULAR HGB CONC 32 g/dL (32.5-36.3); MEAN CORPUSCULAR VOLUME 78.1 fL (73.0-96.2); MONOCYTES % (AUTO) 7.4 % (0.0-11.0); NEUTROPHILS # (AUTO) 2.7 K/uL (1.8-8.9); NEUTROPHILS % (AUTO) 48.4 % (38.5-71.5); PLATELET COUNT (AUTO) 219 K/uL (152-348); RED BLOOD CELL COUNT(AUTO) 2.97 MIL/uL (4.06-5.63)
[2018-05-29 09:59] LABS: HEMOGLOBIN 7.4 g/dL (12.5-16.3)
[2018-05-29 10:00] LABS: HEMATOCRIT 23.2 % (36.7-47.1)
--- NOTE | 2018-05-29 11:00 | NUR ---
[address] Perkins re: 7.[address] perkins ok to go back [facility]. Notified daughter and left massage to regarding discharge. Raina from [place] states they have room for patient confirmed with Charge nurses. Discharge paper given with patient. Pt very forgetful. Report given to Shelby from [facility]. Pt is in no acute distress upon discharge, PICC line intact, x2 nephrostomy tube intact. Updated photo of wounds done.
== END 2018-05-29 11:30 | DRG 981 ==
LOC: ER 17:41 → TELE 19:56 → MED 05-24 12:34
PROVIDERS: ADMIT Internal Medicine; ATTEND Internal Medicine
PROC: 0KBP0ZZ Excision of Left Hip Muscle, Open Approach (ICD-10-PCS; principal; 2018-05-25)
PROC: 0KBN0ZZ Excision of Right Hip Muscle, Open Approach (ICD-10-PCS; 2018-05-25)
DX: D50.9 Iron deficiency anemia, unspecified (principal); L89.154 Pressure ulcer of sacral region, stage 4; L89.324 Pressure ulcer of left buttock, stage 4; L89.314 Pressure ulcer of right buttock, stage 4; L97.423 Non-pressure chronic ulcer of left heel and midfoot with necrosis of muscle; D68.59 Other primary thrombophilia; N39.0 Urinary tract infection, site not specified; E11.621 Type 2 diabetes mellitus with foot ulcer; Z79.4 Long term (current) use of insulin; Z79.01 Long term (current) use of anticoagulants; Z79.02 Long term (current) use of antithrombotics/antiplatelets; E11.42 Type 2 diabetes mellitus with diabetic polyneuropathy; Z66 Do not resuscitate; E11.51 Type 2 diabetes mellitus with diabetic peripheral angiopathy without gangrene; E78.5 Hyperlipidemia, unspecified; I25.10 Atherosclerotic heart disease of native coronary artery without angina pectoris; L89.511 Pressure ulcer of right ankle, stage 1; Z22.322 Carrier or suspected carrier of Methicillin resistant Staphylococcus aureus; I48.0 Paroxysmal atrial fibrillation; F03.90 Unspecified dementia, unspecified severity, without behavioral disturbance, psychotic disturbance, mood disturbance, and anxiety; I10 Essential (primary) hypertension; Z93.6 Other artificial openings of urinary tract status
CPT/HCPCS: 36415; 70030-TC; 71045; 82746; 83550; 83605; 83690; 83735; 84100; 85025; 85730; 86850; 86900; 86901; 87040; 93005; 93307; A4663; J0692; J1815; J2270; J2405; J2916; J3480; J3490; J7030; J7040; J7060; Q0163

== ENCOUNTER 2018-06-17 01:45 | Inpatient (IN) | payer MEDICARE, OTHER ==
[~2018-06-17] VITALS: Ht 188 cm; Wt 68.0 kg
[~2018-06-17 01:45] MED LIST: ACET325T53 PO; AMIN30LI24 PO; AMIO100T4 PO; ASCO500T10 PO; ATOR40TA PO; BLOO-140 IN; CEFE1PIG3 IV; CLOP75TA15 PO; DOCU100C36 PO; EMPA25TA PO; ESCI10TA PO; FERR325T6 PO; FINA5TAB3 PO; METO50TA7 PO; MULT1TAB73 PO; OLAN5TAB3 PO; RIVA15TA2 PO; TAMS-3 PO
[2018-06-17] MEDS ORDERED: MAGN400O6 PO (02:21)
--- NOTE | 2018-06-17 02:39 | NUR ---
PATIENT CAME WITH [address] GRANGER CATHETER NO. 22,URINE COLLECTED FOR URINALYSIS .
[2018-06-17 02:46] LABS: BASOPHILS % (AUTO) 0.1 % (0.0-2.0); EOSINOPHILS # (AUTO) 0.1 K/uL (0.0-0.7); EOSINOPHILS % (AUTO) 0.7 % (0.0-7.0); HEMATOCRIT 23.3 % (36.7-47.1); HEMOGLOBIN 7.7 g/dL (12.5-16.3); LYMPHOCYTES % (AUTO) 19.9 % (20.5-51.5); MEAN CORPUSCULAR HEMOGLOBIN 25.5 uug (23.8-33.4); MEAN CORPUSCULAR HGB CONC 33 g/dL (32.5-36.3); MEAN CORPUSCULAR VOLUME 77.3 fL (73.0-96.2); MONOCYTES # (AUTO) 0.6 K/uL (2.0-10.0); MONOCYTES % (AUTO) 5.7 % (0.0-11.0); NEUTROPHILS # (AUTO) 7.4 K/uL (1.8-8.9); NEUTROPHILS % (AUTO) 73.6 % (38.5-71.5); PLATELET COUNT (AUTO) 354 K/uL (152-348); RED BLOOD CELL COUNT(AUTO) 3.01 MIL/uL (4.06-5.63)
[2018-06-17 02:52] LABS: ALANINE AMINOTRANSFERASE 13 U/L (16-63); ALKALINE PHOSPHATASE 111 U/L (50-136); ASPARTATE AMINOTRANSFERASE 15 U/L (15-37); BILIRUBIN,DIRECT 0.1 mg/dL (0.0-0.2); BILIRUBIN,TOTAL 0.5 mg/dL (0.2-1.0); CARBON DIOXIDE 25 mmol/L (21-32); CHLORIDE 105 mmol/L (98-107); CREATININE 1.3 mg/dL (0.6-1.3); GLUCOSE 102 mg/dL (74-106); POTASSIUM 3.3 mmol/L (3.5-5.1); UREA NITROGEN, BLOOD 23 mg/dL (7-18)
[2018-06-17 02:58] LABS: *BILIRUBIN,URIN NEGATIVE (NEGATIVE); *BLOOD, URINE 2+ (NEGATIVE); *CLARITY,URINE CLOUDY (CLEAR); *COLOR,URINE YELLOW (YELLOW); *KETONES,URINE NEGATIVE (NEGATIVE); *PROTEIN,URINE 1+ (NEGATIVE); *UROBILINOGEN,URINE 0.2 E.U./dl (NORMAL); LEUKOCYTE ESTERASE ,URINE 3+ (NEGATIVE); NITRITE, URINE POSITIVE (NEGATIVE); PH,URINE 5.5 (5.0-8.0)
--- NOTE | 2018-06-17 03:00 | NUR ---
PATIENT CAME FROM [facility] DX: UTI AND DEHYDRATION .
[2018-06-17 03:02] LABS: UGLUCOSE 1+ (NEGATIVE)
[2018-06-17 03:04] LABS: BACTERIA,URINE MANY /HPF (NONE SEEN); RBC,URINE 20-50 /HPF (0-3); SQUAMOUS EPITHELIAL CELL,UR FEW /HPF (NONE SEEN); WBC,URINE TNTC /HPF (0-3)
[2018-06-17] MEDS ORDERED: POTASSIUM CHLORIDE 10 MEQ TAB.PRT.SR PO ONE (04:30)
[2018-06-17] MEDS ORDERED: PIPERACILLIN SODIUM/TAZOBACTAM 3.375 G in IV DEXTROSE 5% 50 ML IV ONE (04:30)
[2018-06-17] MEDS ORDERED: IV NORMAL SALINE 1000 ML BAG IV ONE (04:30)
[2018-06-17] MEDS ORDERED: PIPERACILLIN/TAZOBACTAM/D5W 50 ML IV ONE (04:42)
[2018-06-17] MEDS ORDERED: POTASSIUM CHLORIDE 20 MEQ TAB.PRT.SR ONE (04:56)
--- NOTE | 2018-06-17 05:30 | NUR ---
Pt. admitted to 209 , under care of ,SBAR REPORT GIVEN TO HALI VALLE Belongs List completed.V/S WNL . NO RESPIRATORY DISTRESS NOTED . ALERT ,AWAKE X1.
--- NOTE | 2018-06-17 06:00 | NUR ---
ADMITTED PT FROM ER VIA GURNEY, VERBALLY RESPONSIVE, FOLLOWS TO COMMAND, W/ ADMITTING DIAGNOSIS OF UTI & DEHYDRATION. PLACED PT IN BED, SKIN ASSESSTMENT DONE & PICTURES DONE.C-SCOPE SR. HEP LOCK INTACT & PATENT ON LAC. REPOSITIONED ON HIS SIDE.
[2018-06-17 06:10] VITALS: BP 105/48
[2018-06-17] MEDS ORDERED: FUROSEMIDE 20 MG/2 ML VIAL IV PRN (07:00)
[2018-06-17] MEDS ORDERED: MORPHINE SULFATE 2 MG/1 ML DISP.SYRIN IV PRN (07:00)
[2018-06-17] MEDS ORDERED: ONDANSETRON 4 MG/2 ML VIAL IV PRN (07:00)
--- NOTE | 2018-06-17 07:10 | NUR ---
REPORT GIVEN TO CORNELIUS VALLE.
[2018-06-17 08:00] LABS: IRON, SERUM 13 ug/dL (50-175)
--- NOTE | 2018-06-17 08:00 | NUR ---
AWAKE COOPERATE NO SOB OR PAIN IVF START ORDER RESTING WELL WITH CALL LIGHT IN REACH AND BED ALARM ON
[2018-06-17] MEDS ORDERED: Medication Not On Formulary EA (Empagliflozin (Jardiance) 25 MG) PO SCH (09:00)
[2018-06-17] MEDS ORDERED: [UNRECOGNIZED DRUG - OTHER] PO SCH (09:00)
[2018-06-17] MEDS ORDERED: ESCITALOPRAM OXALATE 10 MG TABLET PO SCH (09:00)
[2018-06-17] MEDS ORDERED: AMINO ACIDS PO SCH (09:00)
[2018-06-17] MEDS ORDERED: PROTEIN HYDROLYS PO SCH (09:00)
[2018-06-17] MEDS: ASCORBIC ACID 500 MG TABLET PO SCH (09:14)
[2018-06-17] MEDS: MULTIVITAMINS,THERAPEUTIC TABLET PO SCH (09:14)
[2018-06-17] MEDS: FERROUS SULFATE 325 MG TABEC PO SCH (09:14)
[2018-06-17] MEDS: FINASTERIDE 5 MG TABLET PO SCH (09:14)
[2018-06-17] MEDS: PROTEIN SUPPLEMENT (PROSTAT) 30 ML LIQUID PO SCH ×2 (09:15→17:32)
[2018-06-17] MEDS: POTASSIUM CHLORIDE 20 MEQ in IV NS 1000 ML 1,000 ML IV PRN (09:27)
[2018-06-17] MEDS ORDERED: CEFTRIAXONE 1 G in IV DEXTROSE 5% 50 ML IV SCH (11:00)
[2018-06-17 11:18] VITALS: BP 121/67
--- NOTE | 2018-06-17 11:50 | NUR ---
START BLOOD TRANSFUSION ORDERED KYREE WELL NO REACTION VS STABLE [UNABLE TO SCAN BLOOD # USE MANUAL PAPER BLOOD TRANSFUSION FLOW SHEET}
--- NOTE | 2018-06-17 12:30 | NUR ---
RESTING QUIET NO PAIN OR SOB BLOOD TRANSFUSION WORKING WELL CLOSED OBSERVATION
--- NOTE | 2018-06-17 14:50 | NUR ---
BLOOD TRANSFUSION COMPLETE NO REACTION VS TAKEN STABLE RESITNG WELL IN BED WITH CALL NAM IN REACH
[2018-06-17] MEDS: ESCITALOPRAM OXALATE 10 MG TABLET PO SCH (15:02)
[2018-06-17 15:03] VITALS: BP 110/49
[2018-06-17] MEDS: BLOOD SUGAR DIAGNOSTIC 1 EACH STRIP VI SCH ×2 (17:10→20:17)
--- NOTE | 2018-06-17 17:15 | NUR ---
RESTING WELL IN BED NO ACUTE DISTRESS ,PAIN UNDER CONTROL SAFETY MEASURE PROVIDED CALL LIGHT IN REACH AND BED ALARM ON
[2018-06-17] MEDS: RIVAROXABAN 15 MG TABLET PO SCH (17:31)
[2018-06-17 19:15] VITALS: BP 111/55
--- NOTE | 2018-06-17 19:30 | NUR ---
Patient lying comfortably at start of shift in no acute distress. Vital signs within range. A/Ox1-2, Grenadian/Syriac speaking but able to make his needs known. Noted with Left AC 18G IV running with NS & 20meq of Kcl at 70cc/hr. No signs of infiltration or welling noted at IV site. Patient has a sacral pressure ulcer & left heel ulcer. Currently dressing is wrapped & intact. Will provide skin care through shift. Bed in low position, locked, x2 side rails up. Call light in reach. Will continue to monitor through shift.
[2018-06-17] MEDS: ACETAMINOPHEN 325 MG TABLET PO PRN (20:10)
[2018-06-17] MEDS: OLANZAPINE 5 MG TABLET PO SCH (20:10)
[2018-06-17] MEDS: TAMSULOSIN HCL 0.4 MG CAP.SR.24H PO SCH (20:10)
[2018-06-17] MEDS: DOCUSATE SODIUM 100 MG CAPSULE PO SCH (20:10)
[2018-06-17 23:28] VITALS: BP 99/45
[2018-06-18] MEDS: POTASSIUM CHLORIDE 20 MEQ in IV NS 1000 ML 1,000 ML IV PRN ×2 (03:54→22:28)
--- NOTE | 2018-06-18 06:22 | NUR ---
Patient slept well through the night. No acute distress noted. Sinus rhythm on the tele monitor. Vital signs within range. Compliant with care. All needs attended to. Skin care provided. Patient turned & reposition every 2 hours. Good urine output in nance cath. Safety & comfort measures implemented. Call light within reach. Will endorse to oncoming shift.
[2018-06-18] MEDS: BLOOD SUGAR DIAGNOSTIC 1 EACH STRIP VI SCH ×4 (06:34→20:06)
[2018-06-18] MEDS: FERROUS SULFATE 325 MG TABEC PO SCH (06:34)
[2018-06-18 06:49] LABS: ALANINE AMINOTRANSFERASE 9 U/L (16-63); ALKALINE PHOSPHATASE 97 U/L (50-136); ASPARTATE AMINOTRANSFERASE 10 U/L (15-37); BILIRUBIN,TOTAL 0.3 mg/dL (0.2-1.0); CARBON DIOXIDE 26 mmol/L (21-32); CHLORIDE 106 mmol/L (98-107); CREATININE 1.1 mg/dL (0.6-1.3); GLUCOSE 94 mg/dL (74-106); MAGNESIUM 1.4 mg/dL (1.8-2.4); PHOSPHOROUS 3.5 mg/dL (2.5-4.9); POTASSIUM 3.6 mmol/L (3.5-5.1); TOTAL PROTEIN, SERUM 6.6 g/dL (6.4-8.2); UREA NITROGEN, BLOOD 18 mg/dL (7-18)
[2018-06-18 06:52] LABS: BASOPHILS % (AUTO) 0.3 % (0.0-2.0); EOSINOPHILS # (AUTO) 0.1 K/uL (0.0-0.7); HEMATOCRIT 25.4 % (36.7-47.1); HEMOGLOBIN 8.3 g/dL (12.5-16.3); LYMPHOCYTES # (AUTO) 2.5 K/uL (20.0-40.0); LYMPHOCYTES % (AUTO) 23.4 % (20.5-51.5); MEAN CORPUSCULAR HEMOGLOBIN 25.7 uug (23.8-33.4); MEAN CORPUSCULAR HGB CONC 33 g/dL (32.5-36.3); MEAN CORPUSCULAR VOLUME 78.4 fL (73.0-96.2); MONOCYTES # (AUTO) 0.8 K/uL (2.0-10.0); MONOCYTES % (AUTO) 7.5 % (0.0-11.0); NEUTROPHILS # (AUTO) 7.1 K/uL (1.8-8.9); NEUTROPHILS % (AUTO) 67.8 % (38.5-71.5); PLATELET COUNT (AUTO) 350 K/uL (152-348); RED BLOOD CELL COUNT(AUTO) 3.24 MIL/uL (4.06-5.63); WHITE BLOOD COUNT (AUTO) 10.5 K/uL (3.6-10.2)
[2018-06-18] MEDS: FINASTERIDE 5 MG TABLET PO SCH (07:58)
[2018-06-18] MEDS: MULTIVITAMINS,THERAPEUTIC TABLET PO SCH (07:58)
[2018-06-18] MEDS: ASCORBIC ACID 500 MG TABLET PO SCH (07:58)
[2018-06-18] MEDS: MAGNESIUM SULFATE/D5W 100 ML IV SCH ×2 (07:58→11:12)
[2018-06-18] MEDS: MEROPENEM 1 G in IV NORMAL SALINE 100 ML IV SCH ×2 (07:58→15:16)
[2018-06-18] MEDS: PROTEIN SUPPLEMENT (PROSTAT) 30 ML LIQUID PO SCH ×2 (07:59→16:45)
[2018-06-18] MEDS: ESCITALOPRAM OXALATE 10 MG TABLET PO SCH (07:59)
--- NOTE | 2018-06-18 08:00 | NUR ---
DR LÓPEZ SEE PATIENT AND LAB RESULT THISAM MED MAG IVPB GIVEN ORDER EAT BREAKFAST MOD AMT PO FLD KYREE VERY WELL
--- NOTE | 2018-06-18 08:00 | NUR ---
AWAKE ALERT NONCOOPERATE SOMETIMES NO ACUTE DISTRESS OR PAIN CONTINUE IVF ON FALL /ASPIRATION PRECAUTION BED ALARM ON AND CALLLIGHT IN REACH
[2018-06-18] MEDS: MORPHINE SULFATE 4 MG/1 ML DISP.SYRIN IV PRN (08:16)
--- NOTE | 2018-06-18 10:45 | NUR ---
TO CAT SCAN OF ABD AND PELVIS W/O CONTRAST VIA BED
[2018-06-18 11:41] VITALS: BP 104/46
[2018-06-18 15:07] VITALS: BP 112/52
[2018-06-18] MEDS: RIVAROXABAN 15 MG TABLET PO SCH (16:49)
--- NOTE | 2018-06-18 18:00 | NUR ---
STABLE HEMODYNAMIC STATUS ON FALL PRECAUTION BED ALARM ON SAFETY MEASURE PROVIDED CALL LIGHT IN REACH
--- NOTE | 2018-06-18 20:00 | NUR ---
PATIENT IS AWAKE IN BED. AAOX2 WITH CONFUSION CONSTANTLY YELLING OUT. DENIES PAIN OR ANY DISTRESS ON ASSESSMENT. ON TELE WITH SR. SAFETY AND COMFORT MEASURES IN PLACE. WILL CONTINUE TO MONITOR PATIENT
[2018-06-18] MEDS: ACETAMINOPHEN 325 MG TABLET PO PRN (20:02)
[2018-06-18] MEDS: TAMSULOSIN HCL 0.4 MG CAP.SR.24H PO SCH (20:02)
[2018-06-18] MEDS: OLANZAPINE 5 MG TABLET PO SCH (20:02)
[2018-06-18] MEDS: DOCUSATE SODIUM 100 MG CAPSULE PO SCH (20:03)
[2018-06-18 20:26] VITALS: BP 98/42
[2018-06-18] MEDS ORDERED: FOSFOMYCIN TROMETHAMINE 3 GM PACKET PO ONE (20:30)
[2018-06-18] MEDS ORDERED: FOSFOMYCIN TROMETHAMINE 3 GM PACKET ONE (21:31)
[2018-06-18] MEDS ORDERED: PIPERACILLIN/TAZOBACTAM/D5W 100 ML IV ONE (22:19)
[2018-06-18] MEDS: PIPERACILLIN/TAZOBACTAM/D5W 3.375 G in PREMIXED 1 EACH IV SCH (22:28)
[2018-06-19 00:52] VITALS: BP 93/45
[2018-06-19 01:30] VITALS: BP 100/52
[2018-06-19] MEDS: ACETAMINOPHEN 325 MG TABLET PO PRN ×3 (04:03→17:55)
[2018-06-19 04:57] VITALS: BP 106/48
[2018-06-19] MEDS: PIPERACILLIN/TAZOBACTAM/D5W 3.375 G in PREMIXED 1 EACH IV SCH (05:19)
[2018-06-19 06:25] LABS: CARBON DIOXIDE 24 mmol/L (21-32); CHLORIDE 109 mmol/L (98-107); CREATININE 1.3 mg/dL (0.6-1.3); GLUCOSE 100 mg/dL (74-106); MAGNESIUM 1.7 mg/dL (1.8-2.4); PHOSPHOROUS 2.9 mg/dL (2.5-4.9); POTASSIUM 3.7 mmol/L (3.5-5.1); UREA NITROGEN, BLOOD 18 mg/dL (7-18)
[2018-06-19] MEDS: FERROUS SULFATE 325 MG TABEC PO SCH (06:30)
[2018-06-19 06:33] LABS: BASOPHILS % (AUTO) 0.2 % (0.0-2.0); EOSINOPHILS # (AUTO) 0.1 K/uL (0.0-0.7); EOSINOPHILS % (AUTO) 1.2 % (0.0-7.0); HEMATOCRIT 22.9 % (36.7-47.1); HEMOGLOBIN 7.7 g/dL (12.5-16.3); LYMPHOCYTES # (AUTO) 2.2 K/uL (20.0-40.0); LYMPHOCYTES % (AUTO) 21.3 % (20.5-51.5); MEAN CORPUSCULAR HEMOGLOBIN 26.1 uug (23.8-33.4); MEAN CORPUSCULAR HGB CONC 34 g/dL (32.5-36.3); MEAN CORPUSCULAR VOLUME 77.8 fL (73.0-96.2); MONOCYTES # (AUTO) 0.7 K/uL (2.0-10.0); MONOCYTES % (AUTO) 6.9 % (0.0-11.0); NEUTROPHILS # (AUTO) 7.3 K/uL (1.8-8.9); NEUTROPHILS % (AUTO) 70.4 % (38.5-71.5); PLATELET COUNT (AUTO) 323 K/uL (152-348); RED BLOOD CELL COUNT(AUTO) 2.94 MIL/uL (4.06-5.63); WHITE BLOOD COUNT (AUTO) 10.4 K/uL (3.6-10.2)
[2018-06-19] MEDS: BLOOD SUGAR DIAGNOSTIC 1 EACH STRIP VI SCH ×4 (06:36→21:10)
--- NOTE | 2018-06-19 06:44 | NUR ---
PATIENT SLEPT ON AND OFF THROUGH THE SHIFT, VERY CONFUSED CONSTANTLY PUSHING CALL LIGHT EVERY 15 MINS. PRN PAIN MEDS GIVEN ORDERED. NO FEVER AT PRESENT. SAFETY AND COMFORT MEASURES MAINTAINED AT ALL TIMES
--- NOTE | 2018-06-19 07:45 | NUR ---
RECEIVED PATIENT ASLEEP AROUSES EASILY ON ROUNDS HE IS ALERT BUT DISORIENTED TO TIME ALL NEEDS ANTICIPATED AND SATISFIED MAX ASSIST FOR ALL ADL ON ROOM AIR WITH NO SHORTNESS OF BREATH REMAIN ON IVF ORDERED WITH NO S/S OF INFILTERATION ON SITE.TURNED AND REPOSITIONED Q2H TELE IS SR MADE COMFORTABLE AND WILL CONTINUE TO OBSERVE.
[2018-06-19] MEDS: PROTEIN SUPPLEMENT (PROSTAT) 30 ML LIQUID PO SCH ×2 (08:14→18:26)
--- NOTE | 2018-06-19 08:35 | NUR ---
CALL RECEIVED FROM [facility] WITH POSITIVE ESBL IN URINE PATIENT PLACED ON ISOLATION AND MD NOTIFIED.PATIENT HAS A GRANGER AT THIS TIME.
[2018-06-19] MEDS: FINASTERIDE 5 MG TABLET PO SCH (08:43)
[2018-06-19] MEDS: AMIODARONE HCL 200 MG TABLET PO SCH (08:43)
[2018-06-19] MEDS: ESCITALOPRAM OXALATE 10 MG TABLET PO SCH (08:44)
[2018-06-19] MEDS: MULTIVITAMINS,THERAPEUTIC TABLET PO SCH (08:44)
[2018-06-19] MEDS: ASCORBIC ACID 500 MG TABLET PO SCH (08:44)
[2018-06-19] MEDS ORDERED: MAGNESIUM SULFATE 1 GM in IV DEXTROSE 5% 50 ML IV ONE (10:15)
--- NOTE | 2018-06-19 10:15 | NUR ---
PHYSICAL THERAPY HERE SEEN PATIENT HE WAS ABLE TO SIT AT THE EDGE OF THE BED ONLY AT THIS TIME.
[2018-06-19] MEDS ORDERED: MEROPENEM 1 G in IV NORMAL SALINE 100 ML IV SCH (10:30)
--- NOTE | 2018-06-19 11:00 | NUR ---
DR WILSON HERE TO SEE PATIENT WITH NEW ORDERS AND NOTED
[2018-06-19] MEDS ORDERED: MAGNESIUM SULFATE/D5W 100 ML IV SCH (11:15)
[2018-06-19 11:50] VITALS: BP 97/43
[2018-06-19] MEDS ORDERED: PIPERACILLIN/TAZOBACTAM/D5W 2.25 G in PREMIXED 1 EACH IV SCH (12:00)
[2018-06-19 12:55] LABS: *BILIRUBIN,URIN NEGATIVE (NEGATIVE); *BLOOD, URINE 2+ (NEGATIVE); *CLARITY,URINE SLIGHTLY CLOUDY (CLEAR); *COLOR,URINE YELLOW (YELLOW); *KETONES,URINE NEGATIVE (NEGATIVE); *PROTEIN,URINE 1+ (NEGATIVE); *UROBILINOGEN,URINE 0.2 E.U./dl (NORMAL); LEUKOCYTE ESTERASE ,URINE 2+ (NEGATIVE); NITRITE, URINE NEGATIVE (NEGATIVE); PH,URINE 5.5 (5.0-8.0)
[2018-06-19 13:02] LABS: UGLUCOSE 2+ (NEGATIVE)
[2018-06-19 13:05] LABS: WBC,URINE TNTC /HPF (0-3)
[2018-06-19 13:07] LABS: *CREATININE,URINE 39.1 mg/dL (30-125); *URINE TOTAL PROTEIN RANDOM 51.2 mg/dL (<150/24HR); SQUAMOUS EPITHELIAL CELL,UR FEW /HPF (NONE SEEN)
[2018-06-19 13:47] LABS: BACTERIA,URINE FEW /HPF (NONE SEEN)
[2018-06-19] MEDS: POTASSIUM CHLORIDE 20 MEQ in IV NS 1000 ML 1,000 ML IV PRN (13:51)
[2018-06-19] MEDS: LINEZOLID IV 600 MG in PREMIXED 1 EACH IV SCH ×2 (13:52→21:56)
[2018-06-19] MEDS: MEROPENEM 1 G in IV NORMAL SALINE 100 ML IV SCH ×2 (15:07→21:12)
[2018-06-19 15:53] VITALS: BP 90/37
[2018-06-19] MEDS: RIVAROXABAN 15 MG TABLET PO SCH (16:17)
--- NOTE | 2018-06-19 17:00 | NUR ---
VERBALLY ABUSIVE TO THIS WRITTER CONSTANTLY YELLING AT THE TOP OF HIS VOICE WANTING TO BE COVERED EVEN I WAS CARING FOR HIS WOUND AND IRRIGATING HIS NEPHROSTOMY TUBES MADE COMFORTABLE AND WILL CONTINUE TO OBSERVE.
--- NOTE | 2018-06-19 18:47 | NUR ---
TOLERATED IV ANTIBIOTICS ORDERED WITH NO ADVERSE OR ALLERGIC REACTIONS AT THIS TIME WILL CONTINUE TO OBSERVE.
[2018-06-19] MEDS ORDERED: MAGNESIUM CITRATE 296 ML BOTTLE PO ONE (19:00)
[2018-06-19] MEDS ORDERED: FLEET ENEMA 133 ML BOTTLE RC ONE (19:00)
[2018-06-19] MEDS ORDERED: GOLYTELY 4000 ML BOTTLE PO ONE (19:00)
[2018-06-19 20:00] VITALS: BP 98/45
--- NOTE | 2018-06-19 20:00 | NUR ---
PATIENT IS AWAKE IN BED, VERY RESTLESS AND AGITATED. PUSHING CALL LIGHT EVERY 15 MINS, SCREAMING YELLING AND VERBALLY ABUSIVE. PATIENT IS OUT OF CONTROL REFUSES TO FOLLOW DIRECTION. CALM QUIET ENVIRONMENT PROVIDED. WILL CONTINUE TO MONITOR PATIENT
[2018-06-19] MEDS: TAMSULOSIN HCL 0.4 MG CAP.SR.24H PO SCH (21:12)
[2018-06-19] MEDS: DOCUSATE SODIUM 100 MG CAPSULE PO SCH (21:12)
[2018-06-19] MEDS: OLANZAPINE 5 MG TABLET PO SCH (21:13)
--- NOTE | 2018-06-19 21:30 | NUR ---
PATIENT CONTINUES TO BE YELL, SCREAM, AND VERY AGITATED AND RESTLESS. MD MARKETING AND COMMUNICATIONS OFFICER NOTIFIED OF PATIENT'S BEHAVIOR NO NEW ORDERS GIVEN
[2018-06-19] MEDS: MORPHINE SULFATE 4 MG/1 ML DISP.SYRIN IV PRN (22:00)
[2018-06-20] MEDS: ACETAMINOPHEN 325 MG TABLET PO PRN ×3 (01:13→22:45)
[2018-06-20 04:22] VITALS: BP 105/48
[2018-06-20] MEDS: FERROUS SULFATE 325 MG TABEC PO SCH (06:20)
[2018-06-20] MEDS: BLOOD SUGAR DIAGNOSTIC 1 EACH STRIP VI SCH ×4 (06:27→21:39)
--- NOTE | 2018-06-20 06:29 | NUR ---
PATIENT SLEPT ON AND OFF THROUGH THE SHIFT, CONSTANTLY PUSHING CALL LIGHT EVERY 15 MINS CONTINUES TO BE CONFUSED AGITATED, YELLS AND SCREAMS. PRN PAIN MEDS GIVEN, NO FEVER ON THIS SHIFT. SAFETY AND COMFORT MEASURES MAINTAINED AT ALL TIMES
[2018-06-20 07:30] LABS: BASOPHILS % (AUTO) 0.1 % (0.0-2.0); EOSINOPHILS # (AUTO) 0.1 K/uL (0.0-0.7); EOSINOPHILS % (AUTO) 1.2 % (0.0-7.0); HEMATOCRIT 24.1 % (36.7-47.1); HEMOGLOBIN 8.1 g/dL (12.5-16.3); LYMPHOCYTES # (AUTO) 3.3 K/uL (20.0-40.0); LYMPHOCYTES % (AUTO) 30.7 % (20.5-51.5); MEAN CORPUSCULAR HEMOGLOBIN 26.7 uug (23.8-33.4); MEAN CORPUSCULAR HGB CONC 34 g/dL (32.5-36.3); MEAN CORPUSCULAR VOLUME 79.6 fL (73.0-96.2); MONOCYTES # (AUTO) 0.7 K/uL (2.0-10.0); NEUTROPHILS # (AUTO) 6.7 K/uL (1.8-8.9); PLATELET COUNT (AUTO) 340 K/uL (152-348); RED BLOOD CELL COUNT(AUTO) 3.03 MIL/uL (4.06-5.63); WHITE BLOOD COUNT (AUTO) 10.9 K/uL (3.6-10.2)
[2018-06-20 07:42] LABS: CARBON DIOXIDE 27 mmol/L (21-32); CHLORIDE 107 mmol/L (98-107); CREATININE 1.2 mg/dL (0.6-1.3); GLUCOSE 87 mg/dL (74-106); MAGNESIUM 1.7 mg/dL (1.8-2.4); PHOSPHOROUS 2.9 mg/dL (2.5-4.9); POTASSIUM 3.9 mmol/L (3.5-5.1); UREA NITROGEN, BLOOD 15 mg/dL (7-18)
--- NOTE | 2018-06-20 07:45 | NUR ---
Sleeping, appears comfortable. IVF infusing. Bed alarm on
[2018-06-20] MEDS: POTASSIUM CHLORIDE 20 MEQ in IV NS 1000 ML 1,000 ML IV PRN (07:57)
[2018-06-20] MEDS: LINEZOLID IV 600 MG in PREMIXED 1 EACH IV SCH ×2 (08:28→20:44)
[2018-06-20] MEDS: PANTOPRAZOLE SODIUM 40 MG VIAL IV SCH (08:29)
[2018-06-20] MEDS: FINASTERIDE 5 MG TABLET PO SCH (08:30)
[2018-06-20] MEDS: SODIUM HYPOCHLORITE 0.25% 480 ML BOTTLE TOP SCH (08:30)
[2018-06-20] MEDS: MULTIVITAMINS,THERAPEUTIC TABLET PO SCH (08:30)
[2018-06-20] MEDS: ASCORBIC ACID 500 MG TABLET PO SCH (08:30)
[2018-06-20] MEDS: PROTEIN SUPPLEMENT (PROSTAT) 30 ML LIQUID PO SCH ×3 (08:36→17:51)
[2018-06-20] MEDS: MORPHINE SULFATE 4 MG/1 ML DISP.SYRIN IV PRN ×2 (08:53→16:41)
[2018-06-20] MEDS ORDERED: FLEET ENEMA 133 ML BOTTLE RC ONE (09:00)
[2018-06-20] MEDS ORDERED: GOLYTELY 4000 ML BOTTLE PO ONE (09:00)
[2018-06-20] MEDS ORDERED: MAGNESIUM CITRATE 296 ML BOTTLE PO ONE (09:00)
[2018-06-20] MEDS: MEROPENEM 1 G in IV NORMAL SALINE 100 ML IV SCH ×2 (09:22→20:44)
--- NOTE | 2018-06-20 10:00 | NUR ---
Patient agreeable with the EGD and Colonoscopy. Dr. Mendez spoke with the consent given through the telephone. Bowel prep started as ordered. Maintained on clear liquid diet.
--- NOTE | 2018-06-20 11:03 | NUR ---
Mg 1.7; Magnesium IV given as ordered
[2018-06-20 11:09] VITALS: BP 100/42
[2018-06-20] MEDS: MAGNESIUM SULFATE/D5W 100 ML IV SCH ×2 (11:37→12:37)
--- NOTE | 2018-06-20 14:00 | NUR ---
Continued to give Golytely intermittently.
[2018-06-20 15:03] VITALS: BP 96/40
[2018-06-20] MEDS: RIVAROXABAN 15 MG TABLET PO SCH (17:00)
[2018-06-20 19:00] VITALS: BP 96/43
--- NOTE | 2018-06-20 19:02 | NUR ---
Had BM 2 x to large amount of loose greenish stool. Golytely continued. Wound care done. Repositioned in bed comfortably.
[2018-06-20 20:16] LABS: *OCCULT BLOOD STOOL NEGATIVE (NEGATIVE)
[2018-06-20] MEDS: DOCUSATE SODIUM 100 MG CAPSULE PO SCH (20:44)
[2018-06-20] MEDS: OLANZAPINE 5 MG TABLET PO SCH (20:44)
[2018-06-20] MEDS: TAMSULOSIN HCL 0.4 MG CAP.SR.24H PO SCH (20:44)
[2018-06-21] VITALS: BP 115/54
[2018-06-21] MEDS: POTASSIUM CHLORIDE 20 MEQ in IV NS 1000 ML 1,000 ML IV PRN (01:29)
[2018-06-21 04:00] VITALS: BP 114/52
[2018-06-21] MEDS: MORPHINE SULFATE 4 MG/1 ML DISP.SYRIN IV PRN ×2 (05:50→21:18)
[2018-06-21 06:25] LABS: BASOPHILS # (AUTO) 0.1 K/uL (0.0-8.0); BASOPHILS % (AUTO) 0.4 % (0.0-2.0); EOSINOPHILS # (AUTO) 0.1 K/uL (0.0-0.7); HEMATOCRIT 26.4 % (36.7-47.1); HEMOGLOBIN 8.6 g/dL (12.5-16.3); LYMPHOCYTES # (AUTO) 2.9 K/uL (20.0-40.0); LYMPHOCYTES % (AUTO) 22.1 % (20.5-51.5); MEAN CORPUSCULAR HEMOGLOBIN 26.1 uug (23.8-33.4); MEAN CORPUSCULAR HGB CONC 33 g/dL (32.5-36.3); MEAN CORPUSCULAR VOLUME 79.9 fL (73.0-96.2); MONOCYTES # (AUTO) 0.6 K/uL (2.0-10.0); MONOCYTES % (AUTO) 4.6 % (0.0-11.0); NEUTROPHILS # (AUTO) 9.4 K/uL (1.8-8.9); NEUTROPHILS % (AUTO) 71.9 % (38.5-71.5); PLATELET COUNT (AUTO) 378 K/uL (152-348); RED BLOOD CELL COUNT(AUTO) 3.31 MIL/uL (4.06-5.63)
[2018-06-21] MEDS: FERROUS SULFATE 325 MG TABEC PO SCH (06:25)
[2018-06-21 06:40] LABS: CARBON DIOXIDE 28 mmol/L (21-32); CHLORIDE 107 mmol/L (98-107); CREATININE 1.1 mg/dL (0.6-1.3); GLUCOSE 79 mg/dL (74-106); MAGNESIUM 1.9 mg/dL (1.8-2.4); UREA NITROGEN, BLOOD 15 mg/dL (7-18)
[2018-06-21] MEDS: BLOOD SUGAR DIAGNOSTIC 1 EACH STRIP VI SCH ×4 (06:58→21:29)
--- NOTE | 2018-06-21 07:00 | NUR ---
Received patient in bed, awake, alert and oriented x3, in no acute distress. Denies pain or SOB at this time. IV site on LAC intact, running NS + KCl 20mEq at 70cc/hr. Patient noted with half of the Golytely not consumed at this time. EGD/Colonoscopy scheduled for 10AM this morning. Explained to patient the importance of taking Golytely as prescribed, able to verbalized understanding. Patient able to consume Golytely one cup at a time. Will continue to monitor. Awaiting for Dr. Albarran to call back
[2018-06-21] MEDS: PROTEIN SUPPLEMENT (PROSTAT) 30 ML LIQUID PO SCH ×2 (08:00→16:59)
--- NOTE | 2018-06-21 08:00 | NUR ---
Patient able to finish Golytely 2000ml at this time. Received a call back from Dr. Albarran, notifed him of the situation. Per MD, he will schedule the procedure this afternoon, OR Nurse made aware. Will continue to monitor.
[2018-06-21] MEDS ORDERED: METOCLOPRAMIDE HCL 10 MG/2 ML VIAL IV STA (08:38)
[2018-06-21] MEDS: FINASTERIDE 5 MG TABLET PO SCH (09:00)
[2018-06-21] MEDS: AMIODARONE HCL 200 MG TABLET PO SCH (09:00)
[2018-06-21] MEDS: MULTIVITAMINS,THERAPEUTIC TABLET PO SCH (09:00)
[2018-06-21] MEDS: ASCORBIC ACID 500 MG TABLET PO SCH (09:00)
--- NOTE | 2018-06-21 09:00 | NUR ---
Anesthesiologist here to see patient, spoke with Dr. Albarran regarding the procedure, per MD and Anesthesiologist, procedure will be done at 230PM. Continue on NPO, IV fluids. Will continue to monitor. Patient made aware and agreed with POC
[2018-06-21] MEDS: MEROPENEM 1 G in IV NORMAL SALINE 100 ML IV SCH ×2 (09:38→21:17)
[2018-06-21] MEDS ORDERED: SIMETHICONE 40 MG/0.6 ML 30 ML BOTTLE MC ONE (09:54)
[2018-06-21] MEDS ORDERED: PROPOFOL 200 MG/20 ML BOTTLE IV ONE (09:54)
[2018-06-21] MEDS ORDERED: ETOMIDATE 20 MG/10 ML VIAL MC ONE (09:54)
[2018-06-21] MEDS ORDERED: EPHEDRINE SULFATE 50 MG/ML AMPUL MC ONE (09:54)
[2018-06-21] MEDS ORDERED: LIDOCAINE HCL 2% 20 ML VIAL MC ONE (09:54)
[2018-06-21] MEDS: PANTOPRAZOLE SODIUM 40 MG VIAL IV SCH (10:28)
[2018-06-21] MEDS: LINEZOLID IV 600 MG in PREMIXED 1 EACH IV SCH ×2 (10:30→22:03)
[2018-06-21] MEDS: SODIUM HYPOCHLORITE 0.25% 480 ML BOTTLE TOP SCH (10:40)
[2018-06-21 11:58] VITALS: BP 106/49
--- NOTE | 2018-06-21 13:45 | NUR ---
Patient went off the unit to OR for EGD/Colonoscopy
--- NOTE | 2018-06-21 15:30 | NUR ---
Patient came back from surgery in stable condition. IV connected to NS + KCl 20mEq at 70cc/hr. SCDs on. Will continue to monitor
[2018-06-21 16:16] VITALS: BP 104/48
[2018-06-21] MEDS: RIVAROXABAN 15 MG TABLET PO SCH (16:58)
--- NOTE | 2018-06-21 17:22 | NUR ---
End of shift note: Patient is awake, alert and oriented x3, in no acute distress. Denies chest pain or SOB. S/P EGD/Colonoscopy at this time, no significant results seen. No active GI bleeding seen. Patient able to tolerate PO intake well. Turned and repositioned every 2 hours. Wound care treatment done as ordered. All needs attended and met. Will continue to monitor
--- NOTE | 2018-06-21 19:20 | NUR ---
RECEIVED PT AWAKE, ALERT, AND ORIENTEDX2. PT SHOWS NO SIGNS OF DISTRESS. IV INTACT AND PATENT. GRANGER INTACT. SAFETY AND COMFORT PROVIDED. WILL CONTINUE TO MONITOR.
[2018-06-21 19:30] VITALS: BP 141/56
[2018-06-21] MEDS: TAMSULOSIN HCL 0.4 MG CAP.SR.24H PO SCH (21:17)
[2018-06-21] MEDS: DOCUSATE SODIUM 100 MG CAPSULE PO SCH (21:17)
[2018-06-21] MEDS: OLANZAPINE 5 MG TABLET PO SCH (21:18)
[2018-06-21] MEDS: ACETAMINOPHEN 325 MG TABLET PO PRN (22:04)
[2018-06-22] MEDS: POTASSIUM CHLORIDE 20 MEQ in IV NS 1000 ML 1,000 ML IV PRN ×2 (00:40→15:46)
[2018-06-22 03:50] VITALS: BP 96/43
[2018-06-22] MEDS: MORPHINE SULFATE 4 MG/1 ML DISP.SYRIN IV PRN (04:54)
--- NOTE | 2018-06-22 06:22 | NUR ---
PT SLEPT INTERMITTENTLY . PRESCRIBED MEDICATION GIVEN AND PT TOLERATED IT WELL. GRANGER CATHETER INTACT. IV INTACT. DRESSING CHANGED. PT TURNED AND REPOSITIONED. SAFETY AND COMFORT PROVIDED. ALL NEEDS ARE MET.WILL ENDORSE TO DAYSMEFT NURSE FOR CONTINUITY OF CARE.
[2018-06-22] MEDS: FERROUS SULFATE 325 MG TABEC PO SCH (06:35)
[2018-06-22] MEDS: BLOOD SUGAR DIAGNOSTIC 1 EACH STRIP VI SCH ×4 (06:36→20:18)
[2018-06-22 07:25] LABS: CARBON DIOXIDE 26 mmol/L (21-32); CHLORIDE 105 mmol/L (98-107); GLUCOSE 99 mg/dL (74-106); POTASSIUM 3.5 mmol/L (3.5-5.1); UREA NITROGEN, BLOOD 10 mg/dL (7-18)
[2018-06-22 07:32] LABS: BASOPHILS % (AUTO) 0.2 % (0.0-2.0); EOSINOPHILS # (AUTO) 0.1 K/uL (0.0-0.7); EOSINOPHILS % (AUTO) 1.2 % (0.0-7.0); LYMPHOCYTES # (AUTO) 1.8 K/uL (20.0-40.0); LYMPHOCYTES % (AUTO) 20.7 % (20.5-51.5); MEAN CORPUSCULAR HEMOGLOBIN 26.2 uug (23.8-33.4); MEAN CORPUSCULAR HGB CONC 34 g/dL (32.5-36.3); MEAN CORPUSCULAR VOLUME 77.5 fL (73.0-96.2); MONOCYTES # (AUTO) 0.5 K/uL (2.0-10.0); MONOCYTES % (AUTO) 5.6 % (0.0-11.0); NEUTROPHILS # (AUTO) 6.4 K/uL (1.8-8.9); NEUTROPHILS % (AUTO) 72.3 % (38.5-71.5); PLATELET COUNT (AUTO) 338 K/uL (152-348); RED BLOOD CELL COUNT(AUTO) 2.92 MIL/uL (4.06-5.63)
[2018-06-22 07:43] LABS: HEMATOCRIT 22.7 % (36.7-47.1); HEMOGLOBIN 7.7 g/dL (12.5-16.3); WHITE BLOOD COUNT (AUTO) 8.8 K/uL (3.6-10.2)
[2018-06-22] MEDS: PROTEIN SUPPLEMENT (PROSTAT) 30 ML LIQUID PO SCH ×2 (08:01→17:04)
[2018-06-22] MEDS: ASCORBIC ACID 500 MG TABLET PO SCH (08:02)
[2018-06-22] MEDS: FINASTERIDE 5 MG TABLET PO SCH (08:03)
[2018-06-22] MEDS: SODIUM HYPOCHLORITE 0.25% 480 ML BOTTLE TOP SCH (08:03)
[2018-06-22] MEDS: PANTOPRAZOLE SODIUM 40 MG TABLET.DR PO SCH (08:03)
[2018-06-22] MEDS: MULTIVITAMINS,THERAPEUTIC TABLET PO SCH (08:03)
[2018-06-22] MEDS: MEROPENEM 1 G in IV NORMAL SALINE 100 ML IV SCH ×3 (08:14→23:20)
[2018-06-22] MEDS: LINEZOLID IV 600 MG in PREMIXED 1 EACH IV SCH ×2 (08:14→20:08)
[2018-06-22 12:13] VITALS: BP 131/62
[2018-06-22 15:18] VITALS: BP 106/48
[2018-06-22] MEDS: RIVAROXABAN 15 MG TABLET PO SCH (16:40)
--- NOTE | 2018-06-22 19:20 | NUR ---
RECEIVED PT AWAKE, ALERT, AND ORIENTEDX3. PT HARD OF HEARING. PT SHOWS NO SIGNS OF DISTRESS. IV INTACT AND PATENT. CALL LIGHT WITHIN REACH. SAFETY AND COMFORT PROVIDED. WILL CONTINUE TO MONITOR.
[2018-06-22] MEDS: LACTOBACILLUS RHAMNOSUS GG 1 EACH CAPSULE PO SCH (20:07)
[2018-06-22] MEDS: OLANZAPINE 5 MG TABLET PO SCH (20:07)
[2018-06-22] MEDS: TAMSULOSIN HCL 0.4 MG CAP.SR.24H PO SCH (20:07)
[2018-06-22] MEDS: DOCUSATE SODIUM 100 MG CAPSULE PO SCH (20:07)
[2018-06-22 20:27] VITALS: BP 104/47
[2018-06-22] MEDS: ACETAMINOPHEN 325 MG TABLET PO PRN (22:30)
[2018-06-23] MEDS: MORPHINE SULFATE 4 MG/1 ML DISP.SYRIN IV PRN (00:01)
[2018-06-23 05:06] VITALS: BP 100/51
[2018-06-23 05:53] LABS: BASOPHILS % (AUTO) 0.2 % (0.0-2.0); EOSINOPHILS # (AUTO) 0.1 K/uL (0.0-0.7); HEMATOCRIT 22.5 % (36.7-47.1); HEMOGLOBIN 7.5 g/dL (12.5-16.3); LYMPHOCYTES % (AUTO) 30.2 % (20.5-51.5); MEAN CORPUSCULAR HEMOGLOBIN 26.1 uug (23.8-33.4); MEAN CORPUSCULAR HGB CONC 34 g/dL (32.5-36.3); MEAN CORPUSCULAR VOLUME 77.8 fL (73.0-96.2); MONOCYTES # (AUTO) 0.5 K/uL (2.0-10.0); MONOCYTES % (AUTO) 7.3 % (0.0-11.0); NEUTROPHILS # (AUTO) 3.9 K/uL (1.8-8.9); NEUTROPHILS % (AUTO) 60.3 % (38.5-71.5); PLATELET COUNT (AUTO) 330 K/uL (152-348); RED BLOOD CELL COUNT(AUTO) 2.89 MIL/uL (4.06-5.63); WHITE BLOOD COUNT (AUTO) 6.5 K/uL (3.6-10.2)
[2018-06-23 05:57] LABS: CARBON DIOXIDE 27 mmol/L (21-32); CHLORIDE 108 mmol/L (98-107); GLUCOSE 98 mg/dL (74-106); POTASSIUM 3.5 mmol/L (3.5-5.1); UREA NITROGEN, BLOOD 9 mg/dL (7-18)
[2018-06-23] MEDS: PANTOPRAZOLE SODIUM 40 MG TABLET.DR PO SCH (06:11)
--- NOTE | 2018-06-23 06:14 | NUR ---
PT SLEPT THROUGHOUT THE SHIFT. PT SHOWS NO SIGNS OF DISTRESS. IV INTACT. GRANGER CATH INTACT. DRESSING CHANGED. PT TURNED AND REPOSITIONED.PRESCRIBED MEDICATION GIVEN AND PT TOLERATED IT WELL. CALL LIGHT WITHIN REACH. SAFETY AND COMFORT PROVIDED. WILL ENDORSE ACCORDINGLY TO DAYSHIFT NURSE FOR CONTINUITY OF CARE.
[2018-06-23] MEDS: FERROUS SULFATE 325 MG TABEC PO SCH (06:36)
[2018-06-23] MEDS: BLOOD SUGAR DIAGNOSTIC 1 EACH STRIP VI SCH ×2 (06:37→11:37)
[2018-06-23] MEDS: MULTIVITAMINS,THERAPEUTIC TABLET PO SCH (08:11)
[2018-06-23] MEDS: ASCORBIC ACID 500 MG TABLET PO SCH (08:11)
[2018-06-23] MEDS: FINASTERIDE 5 MG TABLET PO SCH (08:11)
[2018-06-23] MEDS: LACTOBACILLUS RHAMNOSUS GG 1 EACH CAPSULE PO SCH (08:11)
[2018-06-23] MEDS: PROTEIN SUPPLEMENT (PROSTAT) 30 ML LIQUID PO SCH (08:12)
[2018-06-23] MEDS: SODIUM HYPOCHLORITE 0.25% 480 ML BOTTLE TOP SCH (08:12)
[2018-06-23] MEDS: AMIODARONE HCL 200 MG TABLET PO SCH (08:14)
[2018-06-23] MEDS: MEROPENEM 1 G in IV NORMAL SALINE 100 ML IV SCH (08:16)
[2018-06-23] MEDS: LINEZOLID IV 600 MG in PREMIXED 1 EACH IV SCH (08:16)
[2018-06-23] MEDS ORDERED: PANT40TA2 PO (08:35)
[2018-06-23 11:12] VITALS: BP 113/58
[2018-06-23] MEDS: ACETAMINOPHEN 325 MG TABLET PO PRN (11:12)
--- NOTE | 2018-06-23 12:51 | NUR ---
d/c orders received noted and carried out,d/c heplock per md orders.rn report given to liudmila ordazpt left the facility via ambulances in stable condition
== END 2018-06-23 13:10 | DRG 871 ==
LOC: ER 01:52 → TELE 05:00 → MED 06-19 11:20
PROVIDERS: ADMIT Internal Medicine; ATTEND Internal Medicine
PROC: 30233N1 Transfusion of Nonautologous Red Blood Cells into Peripheral Vein, Percutaneous Approach (ICD-10-PCS; principal; 2018-06-17)
PROC: 0DJD8ZZ Inspection of Lower Intestinal Tract, Via Natural or Artificial Opening Endoscopic (ICD-10-PCS; 2018-06-21)
PROC: 0DJ08ZZ Inspection of Upper Intestinal Tract, Via Natural or Artificial Opening Endoscopic (ICD-10-PCS; 2018-06-21 13:50)
DX: A41.9 Sepsis, unspecified organism (principal); L89.154 Pressure ulcer of sacral region, stage 4; L89.324 Pressure ulcer of left buttock, stage 4; L89.314 Pressure ulcer of right buttock, stage 4; E43 Unspecified severe protein-calorie malnutrition; N39.0 Urinary tract infection, site not specified; D68.59 Other primary thrombophilia; L97.423 Non-pressure chronic ulcer of left heel and midfoot with necrosis of muscle; N17.9 Acute kidney failure, unspecified; Z68.1 Body mass index [BMI] 19.9 or less, adult; K92.2 Gastrointestinal hemorrhage, unspecified; B95.2 Enterococcus as the cause of diseases classified elsewhere; E11.621 Type 2 diabetes mellitus with foot ulcer; E11.42 Type 2 diabetes mellitus with diabetic polyneuropathy; E11.22 Type 2 diabetes mellitus with diabetic chronic kidney disease; I12.9 Hypertensive chronic kidney disease with stage 1 through stage 4 chronic kidney disease, or unspecified chronic kidney disease; E78.5 Hyperlipidemia, unspecified; E83.42 Hypomagnesemia; E86.0 Dehydration; E87.6 Hypokalemia; N18.9 Chronic kidney disease, unspecified; N28.1 Cyst of kidney, acquired; Z79.01 Long term (current) use of anticoagulants; Z93.6 Other artificial openings of urinary tract status; I48.91 Unspecified atrial fibrillation; I25.10 Atherosclerotic heart disease of native coronary artery without angina pectoris; N40.1 Benign prostatic hyperplasia with lower urinary tract symptoms; B96.20 Unspecified Escherichia coli [E. coli] as the cause of diseases classified elsewhere; Z16.12 Extended spectrum beta lactamase (ESBL) resistance; Z16.21 Resistance to vancomycin; D63.8 Anemia in other chronic diseases classified elsewhere; K29.40 Chronic atrophic gastritis without bleeding; K63.5 Polyp of colon; K64.8 Other hemorrhoids; K31.7 Polyp of stomach and duodenum; E11.51 Type 2 diabetes mellitus with diabetic peripheral angiopathy without gangrene
CPT/HCPCS: 36415; 43235; 70030-TC; 71045; 76770; 83550; 83605; 83735; 84100; 84156; 84300; 85025; 85730; 86850; 86900; 86901; 86920; 87040; 87077; 87086; 93005; A4217; A4663; C9113; J0696; J1940; J2020; J2185; J2270; J2543; J3475; J3480; J3490; J7030; J7040; J7060; P9016-BL; P9021